=== PATIENT | male | born 1995 | race Caucasian/White ===

== ENCOUNTER 2018-05-04 21:59 | Emergency (ER) | payer OTHER ==
[~2018-05-04] VITALS: Ht 180.3 cm; Wt 124.3 kg
[~2018-05-04 21:59] MED LIST: ACETAMIN W/CODE1 TA1 PO
[2018-05-04 22:08] VITALS: Ht 180.3 cm; Wt 124.3 kg
[2018-05-04 23:30] VITALS: BP 128/83
== END 2018-05-04 23:30 | disposition home or self-care (01) ==
LOC: ED 21:59
DX: H10.89 Other conjunctivitis (principal); J03.80 Acute tonsillitis due to other specified organisms

== ENCOUNTER 2019-04-28 10:31 | Emergency (ER) | payer OTHER ==
[~2019-04-28] VITALS: Ht 180.3 cm; Wt 127.5 kg
[2019-04-28 10:35] VITALS: Ht 180.3 cm; Wt 127.5 kg
[2019-04-28 12:02] VITALS: BP 136/81
== END 2019-04-28 12:02 | disposition home or self-care (01) ==
LOC: ED 10:31
DX: R09.89 Other specified symptoms and signs involving the circulatory and respiratory systems (principal); R09.82 Postnasal drip; R05 Cough